=== PATIENT | male | born 1955 | race Caucasian/White ===

== ENCOUNTER → 2016-09-10 | Outpatient (REF) ==
[~2016-09-10] MED LIST: ASPIRIN E.C. 8181 MG PO; FLEXERIL 1010 MG/TAB PO; HYZAAR 50-12.1 UDTAB PO; NORCO 325 MG-51 TAB PO; PRAVACHOL10 MG PO
== END ==
LOC: WSOH 11:09
DX: Z01.89 Encounter for other specified special examinations (principal)

== ENCOUNTER 2020-08-06 07:52 | Day surgery (SDC) | payer BC ==
[~2020-08-06] VITALS: Ht 172.7 cm; Wt 85.0 kg
[2020-08-06] MEDS ORDERED: PROTONIX20 MG PO (08:37)
[2020-08-06] MEDS ORDERED: COZAAR100 MG PO (08:38)
[2020-08-06] MEDS ORDERED: HCTZ 25MG TAB25 MG PO (08:38)
[2020-08-06 08:54] VITALS: BP 148/101; PULSE 70; TEMP 97.8
[2020-08-06 09:00] VITALS: BP 114/75; PULSE 65; TEMP 96.8
--- NOTE | 2020-08-06 09:00 | NUR ---
PATIENT TRANSPORTED PER CART FROM GI SUITE TO BAY 4 ACCOMPANIED BY ENDO RN. PATIENT DROWSY. PATIENT SITS ON SIDE OF CART FOR A FEW MINUTES. PATIENT AMBULATES FROM CART TO CHAIR WITH 2 ASSIST. SLOW STEADY GAIT. PATIENT DENIES DISCOMFORT AND NAUSEA. MONITORS APPLIED. VSS ARE STABLE ON ROOM AIR. AT [facility]. VERBAL REPORT RECEIVED. 2710 DR ATWOOD IN ROOM SPEAKING WITH AND PATIENT.
--- NOTE | 2020-08-06 09:00 | NUR ---
VITAL SIGN FOR 0900 IS NOT FOR THIS PATIENT.
--- NOTE | 2020-08-06 09:12 | NUR ---
VSS ON ROOM AIR. PATIENT GIVEN MUFFIN AND DIET COKE. PATIENT TALKING WITH .
[2020-08-06 09:40] VITALS: BP 140/104; PULSE 62; TEMP 98.4
--- NOTE | 2020-08-06 09:40 | NUR ---
PATIENT TRANSPORTED PER CART FROM GI SUITE TO BAY 5 ACCOMPANIED BY SAMPSON RN. PATIENT AMBULATED FROM CART TO CHAIR WITH 1 ASSIST. SLOW STEADY GAIT. AT BEDSIDE. MONITORS REAPPLIED. VSS ON ROOM AIR. PATIENT TALKING WITH STAFF. VERBAL REPORT RECEIVED.
[2020-08-06 09:45] VITALS: BP 149/84; PULSE 64
--- NOTE | 2020-08-06 09:46 | NUR ---
VSS ON ROOM AIR. BLOOD PRESSURE DECREASED. PATIENT GIVEN MUFFIN AND COFFEE. DR ATWOOD IN ROOM SPEAKING WITH PATIENT AND .
[2020-08-06 10:00] VITALS: BP 157/84; PULSE 62
--- NOTE | 2020-08-06 10:05 | NUR ---
VSS ON ROOM AIR. PATIENT TOLERATES MUFFIN AND COFFEE WITHOUT PROBLEMS. DENIES DISCOMFORT. TALKING WITH .
[2020-08-06 10:15] VITALS: BP 129/85; PULSE 78
--- NOTE | 2020-08-06 10:15 | NUR ---
VSS ON ROOM AIR. DISCHARGE INSTRUCTIONS GIVEN VERBAL AND DISCHARG PACKET PROVIDED. QUESTIONS ANSWERED. PATIENT AND VOICED UNDERSTANDING.
--- NOTE | 2020-08-06 10:22 | NUR ---
IV SITE DC'D WITH CATHETER TIP INTACT. PRESSURE AND BANDAGE APPLIED. PATIENT CHANGES INTO STREET CLOTHES. 1030 PATIENT DISCHARGED PER WHEEL CHAIR ACCOMPANIED BY AMB RN TO PRIVATE VECHILE DRIVEN BY .
== END 2020-08-06 10:30 | disposition home or self-care (01) ==
LOC: SDCO
DX: K21.00 Gastro-esophageal reflux disease with esophagitis, without bleeding (principal); K29.30 Chronic superficial gastritis without bleeding; K44.9 Diaphragmatic hernia without obstruction or gangrene; I10 Essential (primary) hypertension; E78.5 Hyperlipidemia, unspecified; M19.90 Unspecified osteoarthritis, unspecified site; Z79.899 Other long term (current) drug therapy; Z79.82 Long term (current) use of aspirin; Z88.1 Allergy status to other antibiotic agents
CPT/HCPCS: J2704; J7120